=== PATIENT | female | born 1995 | race African-American/Black ===

== ENCOUNTER 2022-01-07 13:11 | Emergency (ER) | payer MEDICAID, OTHER ==
[~2022-01-07] VITALS: Ht 175.3 cm; Wt 93.4 kg
[2022-01-07 14:08] LABS: Urine Bacteria FEW /hpf (None Seen); Urine Blood 1+ /uL (Negative); Urine Specific Gravity 1.005 (1.001-1.035); Urine WBC 2 /hpf (0 - 5)
[2022-01-07] MEDS ORDERED: ACETAMINOPHEN 500 MG TAB PO ONE (14:15)
[2022-01-07 14:18] VITALS: BP 108/71
[2022-01-07 14:44] LABS: Basophils # (auto) 0 10 ^3/uL (0-0.2); Basophils % (auto) 0.5 % (0.0-2.0); Eosinophils # (auto) 0.1 10 ^3/uL (0-0.8); Eosinophils % (auto) 0.9 % (0.0-7.0); Lymphocytes % (auto) 18.5 % (10.0-50.0); Mean Corpuscular Hemoglobin 27.1 pg (28.0-32.0); Mean Corpuscular Hgb Conc. 33.3 g/dL (32.0-36.0); Mean Corpuscular Volume 81.6 fL (80.0-100.0); Monocytes # (auto) 0.9 10 ^3/uL (0-1.3); Monocytes % (auto) 15.9 % (0.0-12.0); Neutrophils # (auto) 3.6 10 ^3/uL (1.6-8.6); Neutrophils % (auto) 64.2 % (37.0-80.0); Red Blood Cells 4.41 10^6/uL (4.0-5.20); Red Cell Distribution Width 13.4 % (11.8-14.3); White Blood Cell 5.5 10^3/uL (4.4-10.8)
[2022-01-07] MEDS ORDERED: ACET-1080 PO (15:29)
[2022-01-07] MEDS ORDERED: CYCL-839 PO (15:29)
== END 2022-01-07 15:24 | disposition home or self-care (01) ==
LOC: ER 13:11
DX: S39.012A Strain of muscle, fascia and tendon of lower back, initial encounter (principal); Z32.01 Encounter for pregnancy test, result positive; Z88.0 Allergy status to penicillin; Z91.013 Allergy to seafood; X58.XXXA Exposure to other specified factors, initial encounter; Y93.89 Activity, other specified; Y92.89 Other specified places as the place of occurrence of the external cause; Y99.8 Other external cause status
CPT/HCPCS: 36415; 81001; 81025; 84702; 85025

== ENCOUNTER 2022-09-08 11:29 | Emergency (ER) | payer MEDICAID ==
[~2022-09-08] VITALS: Ht 22.9 cm; Wt 91.8 kg
[~2022-09-08 11:29] MED LIST: ACET-1080 PO; CYCL-839 PO
[2022-09-08 12:58] VITALS: BP 120/56
[2022-09-08] MEDS ORDERED: NAPR500T31 PO (13:17)
== END 2022-09-08 13:26 | disposition home or self-care (01) ==
LOC: ER 11:29
DX: S90.122A Contusion of left lesser toe(s) without damage to nail, initial encounter (principal); Z88.0 Allergy status to penicillin; Z91.013 Allergy to seafood; W22.8XXA Striking against or struck by other objects, initial encounter; Y93.89 Activity, other specified; Y92.89 Other specified places as the place of occurrence of the external cause; Y99.8 Other external cause status
CPT/HCPCS: 73630